=== PATIENT | female | born 1960 | race Caucasian/White ===

== ENCOUNTER 2017-12-27 14:18 | Emergency (ER) | payer OTHER ==
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
[2017-12-27] MEDS ORDERED: IOPAMIDOL (ISOVUE 370) 100 ML BTL IV ONE (16:06)
[2017-12-27 17:37] VITALS: BP 134/50
== END 2017-12-27 17:43 | disposition home or self-care (01) ==
DX: S16.1XXA Strain of muscle, fascia and tendon at neck level, initial encounter (principal); F17.200 Nicotine dependence, unspecified, uncomplicated; Y04.8XXA Assault by other bodily force, initial encounter; Y92.129 Unspecified place in nursing home as the place of occurrence of the external cause
CPT/HCPCS: 82435-PO; 82565-PO; 82947-PO; 84132-PO; 84295-PO; 84520-PO; 85014-PO; Q9967

== ENCOUNTER 2018-01-30 15:04 | Emergency (ER) | payer OTHER ==
[2018-01-30 15:11] VITALS: BP 129/71
--- NOTE | 2018-01-30 15:11 | EDPHY ---
H & P Time Seen by Provider: 01/30/18 15:11 HPI/ROS: HPI CHIEF COMPLAINT: Possible cat bite versus cat scratch to the right hand HISTORY OF PRESENT ILLNESS: Very pleasant 57-year-old female, otherwise healthy no significant medical history does not take any daily medications presents emergency room stating that her cat who is up-to-date on shots scratch during the right hand predominantly over the thenar eminence palmar side. She is a few puncture wounds. Unclear if this is actually a scratch versus bite. The patient thinks the cat scratched her. She presents emergency room as they are mildly erythematous. No significant pain. No fever. No significant swelling. No other injuries. Tetanus is not up-to-date will provide her 1 here. Past Medical History: Denies medical history Past Surgical History: Denies surgical history Social History: Denies drugs alcohol tobacco. Family History: Noncontributory. ROS REVIEW OF SYSTEMS: 10 Systems were reviewed and negative with the exception of the elements mentioned in the history of present illness. Exam Constitutional triage nursing summary reviewed, vital signs reviewed, awake/ alert. Eyes normal conjunctivae and sclera, EOMI, PERRLA. HENT normal inspection, atraumatic, moist mucus membranes, no epistaxis, neck supple/ no meningismus, no raccoon eyes. Respiratory clear to auscultation bilaterally, normal breath sounds, no respiratory distress, no wheezing. Cardiovascular rate normal, regular rhythm, no murmur, no edema, distal pulses normal. Gastrointestinal soft, non-tender, no rebound, no guarding, normal bowel sounds, no distension, no pulsatile mass. Genitourinary no CVA tenderness. Musculoskeletal right hand: Multiple puncture sites with some mild erythema around it over the thenar eminence. No significant crepitus no significant swelling no streaking. No lymphadenopathy. No evidence of necrotizing fasciitis. No evidence of deep space hand infection. No evidence of foreign bodies visualized. no midline vertebral tenderness, full range of motion, no calf swelling, no tenderness of extremities, no meningismus, good pulses, neurovascularly intact. Skin pink, warm, & dry, no rash, skin atraumatic. Neurologic awake, alert and oriented x 3, AAOx3, moves all 4 extremities equally, motor intact, sensory intact, CN II-XII intact, normal cerebellar, normal vision, normal speech. Psychiatric normal mood/affect. Heme/Lymph/Immune no lymphadenopathy. Differential Diagnosis: Includes but is not limited to in a particular order cat bites, cat scratch, hand infection, foreign body, need for tetanus Medical Decision Making: Plan for this patient will update the patient's tetanus, I recommend warm soaks 2 to 3 times a day for 20 min. Augmentin as prescribed, additionally will x-ray right hand rule out foreign bodies. Re-evaluation: X-ray of the hand reviewed. No evidence of fracture or foreign bodies visualized. Recommend the patient Augmentin as prescribed, warm soaks, watch closely her hand for further infection Return emergency room if there is worsening symptoms questions or concerns she understands and is agreeable. Comfortable this plan. Tetanus shot has been updated. Source: Patient - Medical/Surgical History Hx Asthma: No Hx Chronic Respiratory Disease: No Hx Diabetes: No Hx Cardiac Disease: No Hx Renal Disease: No Hx Cirrhosis: No Hx Alcoholism: No Hx HIV/AIDS: No Hx Splenectomy or Spleen Trauma: No Other PMH: denies - Social History Smoking Status: Current every day smoker Constitutional: Initial Vital Signs Temperature (C) 36.9 C 01/30/18 15:09 Heart Rate 64 01/30/18 15:09 Respiratory Rate 18 01/30/18 15:09 Blood Pressure 129/71 H 01/30/18 15:09 O2 Sat (%) 95 01/30/18 15:09 O2 Delivery Mode Room Air Allergies/Adverse Reactions: No Known Allergies Allergy (Unverified 01/30/18 15:08) Home Medications: Medication Instructions Recorded Amoxicillin/Clavulanate Pot 875 mg PO BID #14 tab 01/30/18 [Augmentin 875 MG TAB (*)] Medical Decision Making - Data Points Medications Given: Discontinued Medications Amoxicillin/Clavulanate Potassium (Augmentin 875mg) 875 mg PO EDNOW ONE PRN Reason: Protocol Stop: 01/30/18 15:15 Last Admin: 01/30/18 15:24 Dose: 875 mg Diphtheria/Tetanus/Acell Pertussis (Boostrix) 0.5 ml IM .ONCE ONE Stop: 01/30/18 15:15 Last Admin: 01/30/18 15:24 Dose: 0.5 ml Departure - Departure Disposition: Home, Routine, Self-Care Clinical Impression: Cat scratch Condition: Good Instructions: Animal Bite (ED), Cat Scratch Disease (ED) Additional Instructions: 1. Watch him closely for further signs of infection, redness, swelling, pain 2. Take antibiotics as prescribed 3. Warm soaks 2 to 3 times a day for 20 min 4. If you have any questions or concerns about your cat bite her cat scratch return to the emergency room. Watch for signs of infection. Referrals: NONE *PRIMARY CARE P,. [Primary Care Provider] - As per Instructions [facility],. [Clinic] - As per Instructions Prescriptions: Amoxicillin/Clavulanate Pot [Augmentin 875 MG TAB (*)] 875 mg PO BID #14 tab
[2018-01-30] MEDS ORDERED: TDAP ADULT 0.5 ML INJ (BOOSTRIX) IM ONE (15:14)
[2018-01-30] MEDS ORDERED: AMOXICILLIN/CLAVULANATE POT 875/125 MG TAB PO ONE (15:14)
== END 2018-01-30 15:41 | disposition home or self-care (01) ==
LOC: CED 15:04
DX: S60.511A Abrasion of right hand, initial encounter (principal); F17.200 Nicotine dependence, unspecified, uncomplicated; Z23 Encounter for immunization; W55.03XA Scratched by cat, initial encounter; Y92.9 Unspecified place or not applicable; Y99.9 Unspecified external cause status; Y93.9 Activity, unspecified
CPT/HCPCS: 73130-PO

== ENCOUNTER 2018-06-18 09:07 | Emergency (ER) | payer OTHER ==
--- NOTE | 2018-06-18 09:32 | EDPHY ---
H & P Time Seen by Provider: 06/18/18 09:32 HPI/ROS: Chief complaint. Knee pain HPI. 57-year-old female with right knee pain that began this morning. She awoke this morning with right knee pain. She had an injury to her knee in December 2016 in a fall but really has not bothered her between then and today. She does note increased activity yesterday of cleaning and shopping and lots of climbing stairs. Pain is in the lateral aspect of the right knee and she feels that there is a small tender bump there. Otherwise no swelling or deformity. No other trauma. No hip or ankle pain. No chest discomfort, trouble breathing , abdominal pain, back pain. No surgery on that knee previously. ROS 10 systems were reviewed and negative with the exception of the elements mentioned in the history of present illness Past Medical/Surgical History: GERD, left knee replacement Social History: , daily smoker, no alcohol Smoking Status: Current every day smoker Physical Exam: General Appearance: Alert pleasant well-developed female mild distress vital signs are stable Eyes: Pupils equal and round no pallor or injection. ENT, Mouth: Mucous membranes are moist. Respiratory: There are no retractions, lungs are clear to auscultation. Cardiovascular: Regular rate and rhythm. Gastrointestinal: Abdomen is soft and nontender, no masses, bowel sounds normal. Neurological: Awake and alert, sensory and motor exams grossly normal. Skin: Warm and dry, no rashes. Musculoskeletal: Neck is supple nontender. Extremities mild swelling to the lateral aspect of the inferior patella. No joint line tenderness. No tenderness to patella. No swelling or deformity. No instability to stress. Distal motor vascular sensitivity is intact Psychiatric: Patient is oriented X 3, there is no agitation. Constitutional: Initial Vital Signs Temperature (C) 36.6 C 06/18/18 09:22 Heart Rate 58 L 06/18/18 09:22 Respiratory Rate 18 06/18/18 09:22 Blood Pressure 171/72 H 06/18/18 09:22 O2 Sat (%) 95 06/18/18 09:22 O2 Delivery Mode Room Air Allergies/Adverse Reactions: No Known Allergies Allergy (Verified 06/18/18 09:20) Home Medications: Medication Instructions Recorded Pepcid 06/18/18 Medical Decision Making - Diagnostics Imaging Results: X-ray right knee interpreted by me as without fracture dislocation. Evidence of DJD present. Some bone spurring on the lateral aspect of the knee Procedures: Knee immobilizer is placed. Post splint application reviewed by me shows good anatomic position and distal motor vascular sensitivity to be intact ED Course/Re-evaluation: Re-evaluation at 10:15 a.m.. Patient and I discussed imaging results. We discussed treatment plan including criteria for return and importance of follow- up and further evaluation. She expresses understanding and agreement Differential Diagnosis: I considered fracture, dislocation, sprain Departure - Departure Disposition: Home, Routine, Self-Care Clinical Impression: Sprain of right knee Qualifiers: Encounter type: initial encounter Involved ligament of knee: unspecified ligament Qualified Code(s): S83.91XA - Sprain of unspecified site of right knee , initial encounter Condition: Good Instructions: Knee Sprain (ED) Additional Instructions: Ice and elevation of your right leg next 24 hr. Easy activity. Tylenol 1000 mg every 6 hr as needed for discomfort Knee immobilizer on for 2-3 days. For continuing symptoms follow-up with orthopedist Return sooner for worsening symptoms Referrals: NONE *PRIMARY CARE P,. [Primary Care Provider] - As per Instructions Yves Hilario MD [Medical Doctor] - 5-7 days, if not improved Jeri Hoover MD [Medical Doctor] - As per Instructions Stand Alone Forms: Work Excuse
[2018-06-18 11:01] VITALS: BP 166/86
== END 2018-06-18 11:01 | disposition home or self-care (01) ==
LOC: CED 09:07
DX: S83.91XD Sprain of unspecified site of right knee, subsequent encounter (principal); Z87.828 Personal history of other (healed) physical injury and trauma
CPT/HCPCS: 73564-PO; 99283-ER; L1830-ER